=== PATIENT | male | born 1990 ===

== ENCOUNTER 2020-05-02 10:32 | Emergency (ER) | payer SELFPAY ==
[~2020-05-02] VITALS: Ht 167.6 cm; Wt 68.2 kg
[2020-05-02 10:36] VITALS: TEMP 98.3
[2020-05-02 12:27] VITALS: BP 125/83; PULSE 72
== END 2020-05-02 12:27 | disposition home or self-care (01) ==
LOC: COL.ER 10:32
DX: S00.93XA Contusion of unspecified part of head, initial encounter (principal); S20.20XA Contusion of thorax, unspecified, initial encounter; W13.2XXA Fall from, out of or through roof, initial encounter; Y99.0 Civilian activity done for income or pay

== ENCOUNTER 2020-05-15 12:06 | Emergency (ER) | payer SELFPAY ==
[~2020-05-15] VITALS: Ht 167.6 cm; Wt 70.5 kg
[2020-05-15 12:23] VITALS: TEMP 98.5
[2020-05-15] MEDS ORDERED: FLEXERIL 1010 MG/TAB PO (14:37)
[2020-05-15 15:03] VITALS: BP 130/94; PULSE 84
== END 2020-05-15 15:01 | disposition home or self-care (01) ==
LOC: COL.ER 12:06
DX: S16.1XXD Strain of muscle, fascia and tendon at neck level, subsequent encounter (principal); S00.93XD Contusion of unspecified part of head, subsequent encounter; S10.93XD Contusion of unspecified part of neck, subsequent encounter; W13.2XXD Fall from, out of or through roof, subsequent encounter